=== PATIENT | female | born 1980 | race Caucasian/White ===

== ENCOUNTER 2024-06-30 13:34 | Observation (INO) | payer OTHER, SELFPAY ==
[2024-06-30 13:36] VITALS: BP 110/83; PULSE 95; RESP 16; TEMP 36.3; O2SAT 99; BMI 34.2
[2024-06-30 15:27] LABS: Absolute Lymphocyte Count 4.99 X10^3/uL (0.83-4.51); Absolute Neutrophil Count 5.6 X10^3/uL (2.0-7.7); Basophil# 0.05 X10^3/uL; Basophil% 0.4 % (0-1); Eosinophil# 0.14 X10^3/uL; Eosinophils% 1.2 % (0-5); Hematocrit 42.8 % (37-47); Hemoglobin 14.3 g/dL (12.0-15.0); Lymphocyte # 4.99 X10^3/ul (0.83-4.51); Lymphocyte % 43.5 % (19-41); Mean Corp Hgb Conc 33.4 g/dL (32-36); Mean Corpuscular Hgb 29.3 pg (27.0-32.0); Mean Corpuscular Volume 87.7 fL (81-99); Mean Platelet Vol. 9.2 fl (6.2-12.0); Monocyte# 0.61 X10^3/uL; Monocyte% 5.3 % (0-10); NRBC Flagged by Analyzer 0 % (0-5); Neutrophil # 5.64 X10^3/uL (2.7-7.7); Neutrophil % 49.3 % (47-70); POSITIVE MORPHOLOGY YES; Platelet Count 333 K/mm3 (150-450); RBC Distribution Width CV 14.3 % (11.6-14.6); Red Blood Count 4.88 M/mm3 (4.2-5.4); White Blood Count 11.5 K/mm3 (4.4-11.0)
[2024-06-30 15:29] LABS: Differential Indicated SCAN CRITERIA MET
[2024-06-30 15:54] LABS: Platelet Estimate ADEQUATE (ADEQ)
[2024-06-30 16:04] LABS: Bacteria 0 SEEN /hpf (None Seen); Mucous, Urine 0 SEEN /hpf (<or=2+)
[2024-06-30 16:13] LABS: Color, Urine Yellow (Yellow); Glucose, Dipstick Normal (Normal); Leukocyte Esterase-Dipstick Negative /ul (Negative); Nitrite-Dipstick Negative (Negative); Occult Blood-Urine Negative /ul (Negative); Protein-Dipstick 15 mg/dl (Negative); Urine Bilirubin Dipstick Negative (Negative); Urine Clarity Clear (Clear); Urine Urobilinogen Normal (Normal)
[2024-06-30 16:18] LABS: Ketone-Dipstick 150 mg/dl (Negative)
[2024-06-30 16:22] LABS: ALB/GLOB Ratio 1.5 RATIO (0.9-2.4); AST(SGOT) 15 U/L (<=31); Alanine Aminotransfer ALT/SGPT 14 U/L (<=34); Albumin, Serum 4.4 g/dL (3.5-5.0); Alkaline Phosphatase 83 U/L (35-104); Anion Gap 15 (5-15); BUN 8 mg/dL (4-19); BUN/Creat Ratio 8.5 RATIO (10-20); Calcium,Total 9.8 mg/dL (7.6-11.0); Carbon Dioxide 21.5 mmol/L (21.0-32.0); Chloride 103 mmol/L (98-108); Creatinine, Serum 0.92 mg/dL (0.70-1.20); EST Glomerular Filtration Rate 79 (>60); Estimated Creatinine Clearance 89.09 ml/min (50-250); Globulin 2.9 g/dL (2.2-4.2); Glucose 71 mg/dL (70-99); Lipase 36 U/L (13-75); Potassium 4.5 mmol/L (3.3-5.1); Protein, Total 7.3 g/dL (5.9-8.4); Sodium Level 139 mmol/L (133-145); Total Bilirubin 0.35 mg/dL (0.00-1.30)
[2024-06-30 16:32] LABS: Internal QC Validated? YES +Cl - CLEAR BKGD; Pregnancy, Serum, hCG Quali. NEGATIVE Negative
[2024-06-30 16:37] LABS: Squamous Epithelial Cells - UA 0-5 SEEN /hpf (5-10); White Blood Cells 0-5 SEEN /hpf (0-5)
[2024-06-30 16:39] LABS: Red Blood Cells-Urine 0-5 SEEN /hpf (0-5)
[2024-06-30 19:00] VITALS: BP 107/78; PULSE 95; RESP 19; O2SAT 98
--- NOTE | 2024-06-30 19:18 | CT_ITS ---
PROCEDURE: ABDOMEN/PELVIS W IV CONT ONLY 06/30/2024 REASON FOR EXAM: RUQ PAIN TECHNIQUE: Abdomen and pelvis CT with intravenous contrast. Coronal and Sagittal reconstruction series were provided. PATIENT PREPARATION: Per protocol ORAL CONTRAST TYPE: None. AMOUNT: mL One or more dose reduction techniques were used (e.g., Automated exposure control, adjustment of the mA and/or kV according to patient size, use of iterative reconstruction technique. FINDINGS: Lung bases: The lung bases are clear. Liver: Normal size. No mass. Gallbladder: Diffuse wall thickening. Spleen: Normal size. Pancreas: Normal size without evidence of mass surrounding inflammation or ductal dilation. Adrenals: Left adrenal nodule consistent with an adenoma Kidneys: Normal renal sizes. No hydronephrosis. Bladder: Unremarkable. Reproductive Organs: Prior hysterectomy. Adnexal regions are unremarkable. Bowel: No bowel obstruction. Appendix: Unremarkable. Lymph nodes: Unremarkable. Vasculature: The abdominal aorta and IVC are normal. Peritoneum / Retroperitoneum: Unremarkable. Bones: Unremarkable. CT/Abdomen/Pelvis W IV Cont ONLY IMPRESSION: Subtle gallbladder wall thickening may be secondary to acute or chronic cholecy stitis. Correlation with right upper quadrant ultrasound may be useful. Reading Location: [id number]
[2024-06-30] MEDS: Morphine 4 MG/ML Syringe IV ×2 (19:24→21:44)
[2024-06-30] MEDS: Ondansetron 4 MG/2 ML Vial IV (19:24)
--- NOTE | 2024-06-30 19:36 | EX.ED.DYSGE1 ---
HPI <JAME Gomez - Last Filed: 06/30/24 21:27> History of Present Illness Chief Complaint: Abd Pain Narrative Narrative: Patient is a 44-year-old female with history of obesity, hyperlipidemia, anxiety who presents to the [facility] for ongoing abdominal pain. Patient states for the last 2 weeks, she has been having worsening pain to her right upper quadrant that goes through to her back this has been getting progressively worse over the last 2 weeks. She did have a right upper quadrant ultrasound completed yesterday, this did show some gallbladder sludge however did not show any pericholecystic fluid, no signs for acute cholecystitis. Today the pain was much worse, and the patient called her PCP who told her to go to the emergency department. PFS <JAME Gomez - Last Filed: 06/30/24 21:27> [facility] Home Medications ?Medication ?Instructions ?Recorded ?Last Taken ?Type atorvastatin 20 mg tablet 20 mg PO QHS 06/30/24 06/30/24 History escitalopram oxalate 20 mg tablet 20 mg PO DAILY 06/30/24 06/30/24 History omeprazole 40 mg capsule,delayed 40 mg PO DAILY 06/30/24 06/30/24 History release tirzepatide 10 mg/0.5 mL 10 mg subcut QWEEK 06/30/24 Unknown History subcutaneous pen injector (Mounjaro) Allergy/AdvReac Type Severity Reaction Status Date / Time aspirin AdvReac Itching Verified 06/30/24 13:36 metaxalone (From Skelaxin) AdvReac Itching Verified 06/30/24 13:36 Social History Smoking Status: Current every day smoker tobacco type: cigarettes ROS <JAME Gomez - Last Filed: 06/30/24 21:27> ROS ED ROS Narrative Constitutional: Negative for fever, chills. Positive for weight loss, weakness Eyes: Negative for vision loss, vision change, double vision ENT: Negative for any sore throat, ear pain, congestion Cardiovascular: Negative for any chest pain, tightness, palpitations Respiratory: Negative for any cough, sputum production, hemoptysis, dyspnea, dyspnea on exertion, orthopnea Gastrointestinal: Negative for any constipation, blood in stool, blood in vomit. Positive for abdominal pain, nausea and vomiting, diarrhea : Negative for any urinary frequency, dysuria, retention, blood in urine Muscle skeletal: Negative for any neck pain, back pain Neurological: Negative for any headache, syncope, dizziness Skin: Negative for any rashes, itching, abrasions, lacerations Psychiatric: Negative for any depression, anxiety, stress, suicidal ideation, homicidal ideation Hematologic: Negative for any excessive bruising, easy bleeding EXAM <Kip NoemiJAME ferguson - Last Filed: 06/30/24 21:27> Physical Exam Narrative Exam Narrative: Vital signs reviewed. HEET: Head normocephalic atraumatic, TMs clear bilaterally. Posterior pharynx is clear, moist mucous membranes. Nares clear bilaterally. Neck: Supple with no lymphadenopathy or tenderness. No signs of meningismus. Cardiac: Regular rate and rhythm no murmurs gallops or rubs, equal peripheral pulses bilaterally. Respiratory: Lungs clear to auscultation bilaterally. No chest tenderness. Abdomen: Soft, tenderness to the right upper quadrant, right epigastric area. Positive Maddox sign. No peritoneal signs, active bowel sounds in all quadrants. No abdominal bruit or pulsatile masses. No hepatosplenomegaly Extremities: No peripheral edema, no signs of gross trauma or deformity. Active full range of motion of all extremities. Neuro: Cranial nerves II through XII intact, no focal neurological deficits. Skin: Clean dry and intact with no rash, purpura, petechiae, vesicles or pustules. Backs/flank: No CVA tenderness, no midline spinal tenderness, no deformity. Psych: Normal mood and affect. No SI, HI or acute psychosis. Const Vital Signs: 06/30/24 13:36 06/30/24 19:00 06/30/24 21:00 Temperature 97.3 F L Temperature Source Temporal Pulse Rate 95 95 68 Respiratory Rate 16 19 H 14 Blood Pressure 110/83 H 107/78 Blood Pressure Mean 92 87 Pulse Ox 99 98 Oxygen Delivery Method Room Air Room Air Positive well nourished and well developed General Appearance ED: well developed <Dr. Bay Allen DO - Last Filed: 06/30/24 22:32> Physical Exam Const Vital Signs: 06/30/24 13:36 06/30/24 19:00 06/30/24 21:00 Temperature 97.3 F L Temperature Source Temporal Pulse Rate 95 95 68 Respiratory Rate 16 19 H 14 Blood Pressure 110/83 H 107/78 Blood Pressure Mean 92 87 Pulse Ox 99 98 Oxygen Delivery Method Room Air Room Air [facility] <Kip WheatleyJAME - Last Filed: 06/30/24 21:27> [facility] Lab Data Labs: Laboratory Results - last 24 hr 06/30/24 06/30/24 15:20 15:53 WBC 11.5 H RBC 4.88 Hgb 14.3 Hct 42.8 MCV 87.7 MCH 29.3 MCHC 33.4 RDW Std Deviation 46.0 H RDW Coeff of Chadwick 14.3 Plt Count 333 MPV 9.2 Immature Gran % (Auto) 0.300 Neut % (Auto) 49.3 Lymph % (Auto) 43.5 H [place] % (Auto) 5.3 Eos % (Auto) 1.2 Baso % (Auto) 0.4 Absolute Neuts (auto) 5.6 Absolute Lymphs (auto) 4.99 H Nucleated RBC % 0 Platelet Estimate ADEQUATE Sodium 139 Potassium 4.5 Chloride 103 Carbon Dioxide 21.5 Anion Gap 15 BUN 8 Creatinine 0.92 Estim Creat Clear Calc 89.09 Est GFR (MDRD) Non-Af 79 BUN/Creatinine Ratio 8.5 L Glucose 71 Calcium 9.8 Total Bilirubin 0.35 AST 15 ALT 14 Alkaline Phosphatase 83 Total Protein 7.3 Albumin 4.4 Globulin 2.9 Albumin/Globulin Ratio 1.5 Lipase 36 Serum , Qual NEGATIVE Urine Color Yellow Urine Clarity Clear Urine pH 6.0 Ur Specific [place] 1.010 Urine Protein 15 H Urine Glucose (UA) Normal Urine Ketones 150 A* Urine Occult Blood Negative Urine Nitrite Negative Urine Bilirubin Negative Urine Urobilinogen Normal Ur Leukocyte Esterase Negative Urine RBC 0-5 SEEN Urine WBC 0-5 SEEN Ur Squamous Epith Cells 0-5 SEEN Urine Bacteria 0 SEEN Urine Mucus 0 SEEN Radiography Diagnostic Testing: Clinical Impression(s) from Imaging Studies Abdomen/Pelvis CT 06/30/24 19:18 IMPRESSION: Subtle gallbladder wall thickening may be secondary to acute or chronic cholecystitis. Correlation with right upper quadrant ultrasound may be useful. Reading Location: [id number] Treatment and Re-Evaluation :: Differential diagnosis includes however is not limited to: Acute cholecystitis, bowel obstruction, gastritis, biliary colic, colitis Patient appears generally well, vital signs are stable, patient is nontoxic-appearing. Presenting to the [facility] for ongoing pain of the right upper quadrant. Patient did receive a ultrasound that showed some biliary sludge. Patient did receive some basic laboratory values in the emergency department. This was done in the waiting room, patient CBC showed a slight leukocytosis with a white blood 11.5, chemistries show no acute process, no transaminitis. Patient is not lipase is 36. Patient's urinalysis was negative for any infection however did show ketones. Patient received a CT scan of the abdomen pelvis with IV contrast as well as IV fluids, Zofran and morphine. Will need to be reevaluated. All radiologic examinations were read, reviewed by the emergency department attending. From these reads, a plan of care will be put in place. Patient received a CT scan of the M pelvis with IV contrast. This does show a subtle gallbladder wall thickening may be secondary to acute or chronic cholecystitis. Secondary to the patient's pain to the right upper quadrant, I did speak to surgery who will be down to evaluate the patient. Patient be admitted to surgery service. <Dr. Bay Allen, DO - Last Filed: 06/30/24 22:32> [facility] Narrative Medical decision making narrative: I have personally performed a face to face assessment of the patient and have reviewed the HAM[facility] Note. I performed a substantive portion of the visit including all aspects of the following. My zuniga findings include: History: Patient presents with right upper abdominal pain that has been getting worse over the past few weeks. Patient states she had an outpatient ultrasound which showed sludge in her gallbladder. There is no evidence of acute cholecystitis. Patient states her pain is worse with eating. Patient states that he gets worse approximately 30 to 45 minutes after eating. Patient states her pain radiates into her right scapular area. Patient admits to some nausea and vomiting. Patient denies any hematemesis or coffee-ground emesis. Patient admits to some diarrhea. Patient denies any dysuria, frequency, or hematuria. Exam: Vital signs are stable. Patient is afebrile. Patient is in no acute distress. Oral mucosa is pink and moist. Neck is supple. Trachea is midline. There is no JVD. Heart with regular rate and rhythm. Lungs are clear and equal bilaterally. Abdomen is soft. Bowel sounds are normal. There is right upper quadrant tenderness. There is a positive Maddox sign. There is no rebound or guarding noted. Cranial nerves II through XII are intact. There are no focal motor or sensory deficits noted. Medical Decision Making: Differential diagnosis includes acute cholecystitis, cholelithiasis, bowel obstruction, perforation, pancreatitis, peptic ulcer disease, gastric ulcer, duodenal ulcer, and gastroenteritis. CBC will be obtained to assess for leukocytosis and anemia. Comprehensive metabolic profile will be obtained to assess for hepatic function, renal function, and electrolyte abnormality. Lipase will be obtained to assess for pancreatitis. Serum hCG will be obtained to assess for . Urinalysis will be obtained to assess for urinary tract infection and hematuria. CT scan of the abdomen and pelvis will be obtained to assess for cholecystitis, cholelithiasis, bowel obstruction, and perforation. Patient was given IV fluids, morphine, and Zofran. CBC was reviewed. There is a mild leukocytosis of 11.5. The remainder is within normal limits. Comprehensive metabolic profile was reviewed and was within normal limits. Lipase was reviewed and was normal at 35. Serum hCG was reviewed and was negative. Urinalysis was reviewed. There is no evidence of urinary tract infection or hematuria. CT scan of the abdomen and pelvis was obtained. There is subtle gallbladder wall thickening that could be secondary to acute cholecystitis. There is no free air or free fluid. This was interpreted by the radiologist and was also independently reviewed by myself. Patient was advised of her findings. Patient was given a dose of Zosyn. Case was discussed with Dr. Bosch from general surgery. He was in to evaluate the patient. He will admit the patient to his service. Patient understood and was agreeable with the plan. All questions were answered. Lab Data Labs: Laboratory Results - last 24 hr 06/30/24 06/30/24 15:20 15:53 WBC 11.5 H RBC 4.88 Hgb 14.3 Hct 42.8 MCV 87.7 MCH 29.3 MCHC 33.4 RDW Std Deviation 46.0 H RDW Coeff of Chadwick 14.3 Plt Count 333 MPV 9.2 Immature Gran % (Auto) 0.300 Neut % (Auto) 49.3 Lymph % (Auto) 43.5 H [place] % (Auto) 5.3 Eos % (Auto) 1.2 Baso % (Auto) 0.4 Absolute Neuts (auto) 5.6 Absolute Lymphs (auto) 4.99 H Nucleated RBC % 0 Platelet Estimate ADEQUATE Sodium 139 Potassium 4.5 Chloride 103 Carbon Dioxide 21.5 Anion Gap 15 BUN 8 Creatinine 0.92 Estim Creat Clear Calc 89.09 Est GFR (MDRD) Non-Af 79 BUN/Creatinine Ratio 8.5 L Glucose 71 Calcium 9.8 Total Bilirubin 0.35 AST 15 ALT 14 Alkaline Phosphatase 83 Total Protein 7.3 Albumin 4.4 Globulin 2.9 Albumin/Globulin Ratio 1.5 Lipase 36 Serum , Qual NEGATIVE Urine Color Yellow Urine Clarity Clear Urine pH 6.0 Ur Specific [place] 1.010 Urine Protein 15 H Urine Glucose (UA) Normal Urine Ketones 150 A* Urine Occult Blood Negative Urine Nitrite Negative Urine Bilirubin Negative Urine Urobilinogen Normal Ur Leukocyte Esterase Negative Urine RBC 0-5 SEEN Urine WBC 0-5 SEEN Ur Squamous Epith Cells 0-5 SEEN Urine Bacteria 0 SEEN Urine Mucus 0 SEEN Radiography Diagnostic Testing: Clinical Impression(s) from Imaging Studies Abdomen/Pelvis CT 06/30/24 19:18 IMPRESSION: Subtle gallbladder wall thickening may be secondary to acute or chronic cholecystitis. Correlation with right upper quadrant ultrasound may be useful. Reading Location: [facility] Discharge Plan Dx/Rx/DC Orders Clinical Impression: Acute cholecystitis Disposition Disposition: Acute Care Hospital [facility]
--- NOTE | 2024-06-30 20:57 | PCM.HP.STD ---
HPI - General HPI Narrative GRACIA FONTANEZ, is a 44 F who presents with abdominal pain and nausea and vomiting. Patient reports this has been going on for several months. She said that she had a hysterectomy in April and she started having constipation as well as right upper quadrant pain and black and tarry stools. She is on omeprazole. PFSH Home Medications ?Medication ?Instructions ?Recorded ?Last Taken ?Type clonazepam 1 mg tablet (Klonopin) 1 mg PO 01/13/13 01/13/13 History hydrocodone-acetaminophen 5-325mg 1 tab PO Q6H PRN PRN Pain 01/13/13 Unknown History 5mg-325mg topiramate 25 mg tablet 25 mg PO BID 01/13/13 01/13/13 History Allergy/AdvReac Type Severity Reaction Status Date / Time aspirin AdvReac Itching Verified 06/30/24 13:36 metaxalone (From Skelaxin) AdvReac Itching Verified 06/30/24 13:36 Social History Smoking Status: Current every day smoker tobacco type: cigarettes ROS Constitutional Constitutional: Reports anorexia; Denies chills, fatigue or fever(s) Eyes Eyes: Denies blurry vision ENT HEENT: Denies abnormal hearing Cardiovascular Cardiovascular: Denies chest pain Respiratory/Chest Respiratory/Chest: Denies cough or dyspnea Gastrointestinal Gastrointestinal: Reports abdominal pain, melena, nausea and vomiting Genitourinary Genitourinary: Denies change in urinary stream Musculoskeletal Musculoskeletal: Denies abnormal gait Psychiatric Psychiatric: Denies anxiety Endocrine Endocrinology: Denies flushing Vital Signs Vital Signs Vital Signs: 06/30/24 13:36 06/30/24 19:00 Temperature 97.3 F L Temperature Source Temporal Pulse Rate 95 95 Respiratory Rate 16 19 H Blood Pressure 110/83 H 107/78 Blood Pressure Mean 92 87 Pulse Ox 99 98 Oxygen Delivery Method Room Air Room Air Weight Weight: 206 lb Body Mass Index (BMI) 34.2 Physical Exam Const oriented x3 and no apparent distress Resp normal respiratory effort Cardio regular rate and regular rhythm GI soft to palpation Palpation: tender RUQ Results Lab / Micro Data 06/30/24 15:20 06/30/24 15:20 Labs: Laboratory Results - last 24 hr 06/30/24 15:20: WBC 11.5 H, RBC 4.88, Hgb 14.3, Hct 42.8, MCV 87.7, MCH 29.3, MCHC 33.4, RDW Std Deviation 46.0 H, RDW Coeff of Chadwick 14.3, Plt Count 333, MPV 9.2, Immature Gran % (Auto) 0.300, Neut % (Auto) 49.3, Lymph % (Auto) 43.5 H, [place] % (Auto) 5.3, Eos % (Auto) 1.2, Baso % (Auto) 0.4, Absolute Neuts (auto) 5.6, Absolute Lymphs (auto) 4.99 H, Nucleated RBC % 0, Platelet Estimate ADEQUATE, Sodium 139, Potassium 4.5, Chloride 103, Carbon Dioxide 21.5, Anion Gap 15, BUN 8, Creatinine 0.92, Estim Creat Clear Calc 89.09, Est GFR (MDRD) Non-Af 79, BUN/Creatinine Ratio 8.5 L, Glucose 71, Calcium 9.8, Total Bilirubin 0.35, AST 15, ALT 14, Alkaline Phosphatase 83, Total Protein 7.3, Albumin 4.4, Globulin 2.9, Albumin/Globulin Ratio 1.5, Lipase 36, Serum , Qual NEGATIVE 06/30/24 15:53: Urine Color Yellow, Urine Clarity Clear, Urine pH 6.0, Ur Specific [place] 1.010, Urine Protein 15 H, Urine Glucose (UA) Normal, Urine Ketones 150 A*, Urine Occult Blood Negative, Urine Nitrite Negative, Urine Bilirubin Negative, Urine Urobilinogen Normal, Ur Leukocyte Esterase Negative, Urine RBC 0-5 SEEN, Urine WBC 0-5 SEEN, Ur Squamous Epith Cells 0-5 SEEN, Urine Bacteria 0 SEEN, Urine Mucus 0 SEEN Imaging Radiology Impression Abdomen/Pelvis CT 06/30/24 19:18 IMPRESSION: Subtle gallbladder wall thickening may be secondary to acute or chronic cholecystitis. Correlation with right upper quadrant ultrasound may be useful. Reading Location: [id number] Assessment & Plan Assessment/Plan (1) Acute cholecystitis: PLAN: The patient had an outpatient ultrasound done yesterday which showed sludge and wall thickening of the gallbladder. She called her doctor today and told her she was not feeling well and they sent her to the emergency room. She has CT scan with that also confirms thickening of the gallbladder wall with surrounding stranding suggestive of early acute cholecystitis. I discussed this with the patient in detail and recommended laparoscopic cholecystectomy. I discussed this with her. I discussed the procedure in detail with the patient. I discussed the risks, benefits, and alternatives of the procedure. I discussed the risks including but not limited to bleeding, infection, injury to surrounding organs such as the liver, bile duct, bowels. I did discuss the possibility of having to convert to an open procedure as well as the possibility that if any injuries occurred this may necessitate further surgery at a tertiary care center. I will admit the patient on antibiotics tonight and plan for surgery tomorrow.
[2024-06-30 21:00] VITALS: PULSE 68; RESP 14
[2024-06-30 21:50] VITALS: BP 107/78; PULSE 68; RESP 14; TEMP 36.3; O2SAT 98
[2024-06-30] MEDS: 0.9% Normal Saline (1000mL) 1,000 ML 100 ML IV ×2 (21:56→23:52)
[2024-06-30] MEDS: Piperacil/Tazobactam 3.375 GM in 0.9% Normal Saline (50mL MB+) 50 ML IV (23:23)
[2024-06-30 23:25] VITALS: BMI 34.7
[2024-06-30 23:45] VITALS: BP 127/83; PULSE 80; RESP 18; TEMP 36.7; O2SAT 95
[2024-06-30] MEDS: 0.9% Saline Lock 10 ML Syringe IV (23:51)
[2024-06-30] MEDS: Ketorolac 15 MG/ML Vial IV (23:51)
[2024-07-01] VITALS (17 sets, daily range): BP systolic 105–140; BP diastolic 69–97; PULSE 75–97; RESP 16–20; TEMP 36.4–36.9; O2SAT 92–99
--- NOTE | 2024-07-01 03:35 | EKG12_ITS ---
Test Reason : PRE-OP Blood Pressure : */* mmHG Vent. Rate : 74 BPM Atrial Rate : 74 BPM P-R Int : 140 ms QRS Dur : 82 ms QT Int : 440 ms P-R-T Axes : 35 63 26 degrees QTcB Int : 488 ms Normal sinus rhythm Low voltage QRS Prolonged QT Abnormal ECG No previous ECGs available Confirmed by Dominick Cordero ([id number]), publishing editor CLARISSE ALBETR ([id number]) on 07/02/2024 9:39:58 AM Referred By: VIMAL Confirmed By: Dominick Cordero
[2024-07-01] MEDS: Morphine 2 MG/ML Syringe IV ×4 (05:23→20:52)
[2024-07-01] MEDS: Ondansetron 4 MG/2 ML Vial IV ×2 (05:23→18:50)
[2024-07-01] MEDS: Piperacil/Tazobactam 3.375 GM in 0.9% Normal Saline (50mL MB+) 50 ML IV ×3 (05:32→20:52)
--- NOTE | 2024-07-01 07:06 | RAD_ITS ---
EXAM: Intraoperative cholangiogram. CLINICAL HISTORY: Laparoscopic cholecystectomy. COMPARISON: None TECHNIQUE: Intraoperative cholangiogram was performed by the surgeon. Imaging was submitted. 2 minutes and 26 seconds of fluoroscopy. 8.32 mGy. FINDINGS: Attempted cholangiogram. Nondiagnostic. RAD/Cholangiogram/ O R,Initial IMPRESSION: Nondiagnostic cholangiogram. Reading Location: [place] [id number]
[2024-07-01 07:18] LABS: Absolute Lymphocyte Count 4.48 X10^3/uL (0.83-4.51); Absolute Neutrophil Count 2.9 X10^3/uL (2.0-7.7); Basophil# 0.04 X10^3/uL; Basophil% 0.5 % (0-1); Eosinophil# 0.23 X10^3/uL; Eosinophils% 2.8 % (0-5); Hematocrit 37.1 % (37-47); Lymphocyte # 4.48 X10^3/ul (0.83-4.51); Mean Corp Hgb Conc 32.3 g/dL (32-36); Mean Corpuscular Hgb 28.9 pg (27.0-32.0); Mean Corpuscular Volume 89.4 fL (81-99); Mean Platelet Vol. 9.7 fl (6.2-12.0); Monocyte# 0.64 X10^3/uL; Monocyte% 7.7 % (0-10); NRBC Flagged by Analyzer 0 % (0-5); Neutrophil # 2.89 X10^3/uL (2.7-7.7); Neutrophil % 34.9 % (47-70); Platelet Count 273 K/mm3 (150-450); RBC Distribution Width CV 14.4 % (11.6-14.6); RBC Distribution Width SD 46.8 fl (35.1-43.9); Red Blood Count 4.15 M/mm3 (4.2-5.4); White Blood Count 8.3 K/mm3 (4.4-11.0)
--- NOTE | 2024-07-01 07:23 | PCM.PN.SRG ---
Subjective Subjective Patient still having right upper quadrant pain Objective Data Objective Data Vital Signs: Vital Signs Temp Pulse Resp BP Pulse Ox O2 Del Method 97.5 F L 75 18 115/82 H 97 Room Air 07/01/24 05:30 07/01/24 05:30 07/01/24 05:30 07/01/24 05:30 07/01/24 05:30 07/01/24 05:30 Oxygen Delivery Method Room Air Weight: 208 lb 6.4 oz Body Mass Index (BMI) 34.7 Intake & Output: Intake and Output for Last 24 Hours 06/29/24 06/30/24 07/01/24 23:59 23:59 23:59 Intake Total 193.33 / 193.33 250 / 250 Balance 193.33 / 193.33 250 / 250 Lab / Micro Data 07/01/24 06:35 06/30/24 15:20 Labs: Laboratory Results - last 24 hr 06/30/24 15:20: WBC 11.5 H, RBC 4.88, Hgb 14.3, Hct 42.8, MCV 87.7, MCH 29.3, MCHC 33.4, RDW Std Deviation 46.0 H, RDW Coeff of Chadwick 14.3, Plt Count 333, MPV 9.2, Immature Gran % (Auto) 0.300, Neut % (Auto) 49.3, Lymph % (Auto) 43.5 H, [place] % (Auto) 5.3, Eos % (Auto) 1.2, Baso % (Auto) 0.4, Absolute Neuts (auto) 5.6, Absolute Lymphs (auto) 4.99 H, Nucleated RBC % 0, Platelet Estimate ADEQUATE, Sodium 139, Potassium 4.5, Chloride 103, Carbon Dioxide 21.5, Anion Gap 15, BUN 8, Creatinine 0.92, Estim Creat Clear Calc 89.09, Est GFR (MDRD) Non-Af 79, BUN/Creatinine Ratio 8.5 L, Glucose 71, Calcium 9.8, Total Bilirubin 0.35, AST 15, ALT 14, Alkaline Phosphatase 83, Total Protein 7.3, Albumin 4.4, Globulin 2.9, Albumin/Globulin Ratio 1.5, Lipase 36, Serum , Qual NEGATIVE 06/30/24 15:53: Urine Color Yellow, Urine Clarity Clear, Urine pH 6.0, Ur Specific [place] 1.010, Urine Protein 15 H, Urine Glucose (UA) Normal, Urine Ketones 150 A*, Urine Occult Blood Negative, Urine Nitrite Negative, Urine Bilirubin Negative, Urine Urobilinogen Normal, Ur Leukocyte Esterase Negative, Urine RBC 0-5 SEEN, Urine WBC 0-5 SEEN, Ur Squamous Epith Cells 0-5 SEEN, Urine Bacteria 0 SEEN, Urine Mucus 0 SEEN 07/01/24 06:35: WBC 8.3, RBC 4.15 L, Hgb 12.0, Hct 37.1, MCV 89.4, MCH 28.9, MCHC 32.3, RDW Std Deviation 46.8 H, RDW Coeff of [place] 14.4, Plt Count 273, MPV 9.7, Immature Gran % (Auto) 0.100, Neut % (Auto) 34.9 L, Lymph % (Auto) 54.0 H, [place] % (Auto) 7.7, Eos % (Auto) 2.8, Baso % (Auto) 0.5, Absolute Neuts (auto) 2.9, Absolute Lymphs (auto) 4.48, Nucleated RBC % 0 Radiography Diagnostic Testing: Radiology Impression Abdomen/Pelvis CT 06/30/24 19:18 IMPRESSION: Subtle gallbladder wall thickening may be secondary to acute or chronic cholecystitis. Correlation with right upper quadrant ultrasound may be useful. Reading Location: [facility] Physical Exam Const oriented x3 and no apparent distress Resp normal respiratory effort GI soft to palpation Palpation: tender RUQ Assessment & Plan Assessment/Plan (1) Acute cholecystitis: PLAN: Patient has sludge and acute cholecystitis. Plan for laparoscopic cholecystectomy today. All the patient's questions were answered and the patient is ready for surgery. Unruly Bosch MD Pager: [facility] [address] [place] [address], [address] [place] [address] Office:
[2024-07-01 07:51] LABS: ALB/GLOB Ratio 1.5 RATIO (0.9-2.4); AST(SGOT) 14 U/L (<=31); Alanine Aminotransfer ALT/SGPT 11 U/L (<=34); Albumin, Serum 3.7 g/dL (3.5-5.0); Alkaline Phosphatase 70 U/L (35-104); Anion Gap 12 (5-15); BUN 6 mg/dL (4-19); BUN/Creat Ratio 7.2 RATIO (10-20); Calcium,Total 8.7 mg/dL (7.6-11.0); Carbon Dioxide 21.9 mmol/L (21.0-32.0); Chloride 105 mmol/L (98-108); Creatinine, Serum 0.82 mg/dL (0.70-1.20); EST Glomerular Filtration Rate 91 (>60); Estimated Creatinine Clearance 100.56 ml/min (50-250); Globulin 2.4 g/dL (2.2-4.2); Glucose 66 mg/dL (70-99); Potassium 3.7 mmol/L (3.3-5.1); Protein, Total 6.2 g/dL (5.9-8.4); Sodium Level 138 mmol/L (133-145)
[2024-07-01] MEDS: Ketorolac 15 MG/ML Vial IV ×2 (10:12→20:51)
--- NOTE | 2024-07-01 11:06 | PRE.ANES_ITS ---
ASA Classification* ASA Classification ASA Classification: 2 Assessment & Plan Anesthesia* Anesthesia Assessment Anesthesia Assessment: Discussed sedation and/or anesthesia options, risks, benefits, and alternatives with patient/parents/legal guardian/POA. Questions invited. The patient/parents/legal guardian/POA seems to understand and agrees to proceed with anesthesia plan. Reviewed the physical assessment, medical history, allergy history and patient home medications list prior to surgery/procedure/anesthetic and documented any changes. Performed airway and anesthesia risk assessments. Anesthesia Type Anesthesia Type: General Anesthesia Focused Assessment* Temperature: 97.5 F Pulse Rate: 75 Blood Pressure: 115/82 Respiratory Rate: 18 Pulse Ox: 97 Airway Assessment Mouth opens: >3 cm Mallampati Score: II Focused Labs Anesthesia Preop lab: CBC WBC 8.3 K/mm3 (4.4-11.0) 07/01/24 06:35 07/01/24 RBC 4.15 M/mm3 (4.2-5.4) L 07/01/24 06:35 07/01/24 Hgb 12.0 g/dL (12.0-15.0) 07/01/24 06:35 07/01/24 Hct 37.1 % (37-47) 07/01/24 06:35 07/01/24 Plt Count 273 K/mm3 (150-450) 07/01/24 06:35 07/01/24 CHEMISTRY Potassium 3.7 mmol/L (3.3-5.1) 07/01/24 06:35 07/01/24 Sodium 138 mmol/L (133-145) 07/01/24 06:35 07/01/24 BUN 6 mg/dL (4-19) 07/01/24 06:35 07/01/24 Creatinine 0.82 mg/dL (0.70-1.20) 07/01/24 06:35 07/01/24 Glucose 66 mg/dL (70-99) L 07/01/24 06:35 07/01/24 TSH 2.19 uIU/mL (0.358-3.74) 02/08/12 10:57 2 COAG Pre-Assessment Diagnosis/Proposed Procedure Planned Operative Procedure(s): Laproscopic celi Anesthesia History 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 When Was Last Pacemaker Check QUESTION #4 FULL TEXT: You/Your Family Experience fever (hyperthermia) with Anesthesia Last Oral Intake Last Oral intake: Last Oral Intake NPO since Meds taken in AM with sips of water? Meds patient instructed to take am of surgery PONV PONV - water maintenance supervisor: PONV - water maintenance supervisor Female HX of Motion Sickness HX of N/V After Surgery Non-Smoker Duration of Surgery greater than 60 minutes Number of Risk Factors PONV Score Height & Weight Height & Weight: Anesthesia: Height & Weight Height 5 ft 5 in 06/30/24 23:25 Weight: 94.529 kg 06/30/24 23:25 Body Mass Index (BMI) 34.7 06/30/24 23:25 Respiratory Assessment Respiratory Assessment - water maintenance supervisor: Respiratory Tract Infection Hx - water maintenance supervisor Hx Respiratory Tract Infection No 07/01/24 05:27 STOP Sleep Apnea STOP Sleep Apnea - water maintenance supervisor: STOP Sleep Apnea - water maintenance supervisor Hx Hypertension No 06/30/24 23:25 Hx Sleep Apnea No 06/30/24 23:25 CPAP BIPAP Do you snore loudly (louder Yes 06/30/24 23:25 than talking or can be heard Do you often feel tired/ Yes 06/30/24 23:25 fatigued/ sleepy during daytime? Has anyone observed you stop No 06/30/24 23:25 breathing during sleep? STOP Results Positive 06/30/24 23:25 QUESTION #5 FULL TEXT : Do you snore loudly (louder than talking or can be heard through closed doors)? 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 Specify any problems Hx of Preganancy in last 3 N/A 06/30/24 23:25 Months Nurse Filling Out Transfusion LFORREST 06/30/24 23:25 & Questions: Date: 06/30/24 06/30/24 23:25 Time: 23:29 06/30/24 23:25 Patient unable to answer at this time (ie. confused, unrespo /Reproduction History /Reproductive History - water maintenance supervisor: /Reproductive Hx- water maintenance supervisor Hx Now No 07/01/24 05:27 Gestational Age (in weeks): EDC: Hx Hx Para Hx Section SAB No 07/01/24 05:27 Active Medications Active Medications: Current Medications Generic Name Dose Route Start Last Admin Trade Name Freq PRN Reason Stop Dose Admin Sodium Chloride 1,000 mls @ 100 mls/hr 06/30/24 21:05 07/01/24 09:52 IV Infused .Q10H BENI Infusion Piperacillin Sod/Tazobactam 50 mls @ 12.5 mls/hr 06/30/24 22:00 07/01/24 09:32 Sod 3.375 gm/ Sodium Chloride IV Infused Q8 BENI Infusion Sodium Chloride 100 mls @ 15 mls/hr 06/30/24 23:42 IV .Q6H40M PRN Saline Flush Sodium Chloride 100 mls @ 15 mls/hr 06/30/24 23:42 IV .Q6H40M PRN Additional IVPB Infusion Ketorolac Tromethamine 15 mg 06/30/24 21:04 07/01/24 10:12 Ketorolac 15 Mg/Ml Vial IV 07/02/24 21:07 15 mg Q8H PRN PRN Administration Pain Score 4-10 Morphine Sulfate 2 - 4 mg 06/30/24 21:04 07/01/24 05:23 Morphine 2 Mg/Ml Syringe IV 2 mg Q2H PRN PRN Administration Pain Score 4-10 Morphine Sulfate 2 - 4 mg 06/30/24 22:32 Morphine 4 Mg/Ml Syringe IV Q2H PRN PRN Pain Score 4-10 Ondansetron HCl 4 mg 06/30/24 21:04 07/01/24 05:23 Ondansetron 4 Mg/2 Ml Vial IV 4 mg Q6H PRN PRN Administration NAUSEA/VOMITING Sodium Chloride 10 - 40 ml 06/30/24 21:04 06/30/24 23:51 0.9% Saline Lock 10 Ml Syringe IV 20 ml UD PRN Administration SALINE FLUSH Sodium Chloride 10 - 40 ml 06/30/24 21:04 0.9% Saline Lock 10 Ml Syringe IV UD PRN SALINE FLUSH Sodium Chloride 10 - 40 ml 06/30/24 23:42 0.9% Saline Lock 10 Ml Syringe IV UD PRN SALINE FLUSH PFSH Medical History Bladder laceration as postoperative complication Sleep walking Patella fracture Spinal cord injury Home Medications ?Medication ?Instructions ?Recorded ?Last Taken ?Type atorvastatin 20 mg tablet 20 mg PO QHS 06/30/24 History escitalopram oxalate 20 mg tablet 20 mg PO DAILY 06/3006/30/24 History omeprazole 40 mg capsule,delayed 40 mg PO DAILY 06/30/24 History release tirzepatide 10 mg/0.5 mL 10 mg subcut QWEEK 06/30/24 06/27/24 History subcutaneous pen injector (Mounjaro) Allergy/AdvReac Type Severity Reaction Status Date / Time aspirin AdvReac Itching Verified 06/30/24 13:36 metaxalone (From Skelaxin) AdvReac Itching Verified 06/30/24 13:36 Surgical History H/O tubal ligation H/O: hysterectomy Social History Smoking Status: Current every day smoker tobacco type: cigarettes Review of Systems (Anesthesia) ROS Narrative System reviewed and no additional complaints, except as documented.
--- NOTE | 2024-07-01 11:45 | GALL_PTH ---
PATIENT: GRACIA FONTANEZ LOC: [facility]3 U#:[id number] AGE/SX: 44/F ROOM: FL311 RE06/30/[address]: Dr. Unruly Bosch MD : 1980 BED: 1 DIS: 07/02/2024 SPEC #: [id number] RECD: 07/01/24 14:25 STATUS: GIACOMO RIBEIROAnne Marie #: [id number] KAVITHA: 07/01/24 11:[address]: Unruly Bosch DEPT: SURGICAL PATHOLOGY RECD BY: Price Lou Tissues: A - Gallbladder, NOS Procedures: Surgery Specimen Level III HEADER OPERATION: Laparoscopic cholecystectomy PRE-OP DIAGNOSIS: Acute cholecystitis TISSUE SUBMITTED: A- Gallbladder MICROSCOPIC DIAGNOSIS A. Gallbladder, acute cholecystitis, cholecystectomy: * Cholesterolosis. * Benign pericystic lymph node x1. MICROSCOPIC DESCRIPTION Slides are reviewed. GROSS DESCRIPTION A. Received in formalin in a container labeled with the patient's name, date of , and gallbladder is an intact, 8.5 x 4.3 x 4.0 cm cholecystectomy specimen. A clamped possible cystic duct margin is identified measuring 0.3 cm in length by 0.2 cm in diameter (inked black). The serosa is within normal limits. The specimen is opened to reveal an abundance of thick green bile with no stones in the specimen or in the container. The mucosa is bile-stained green with diffuse trevino stippling. There is an average wall thickness of 0.2 cm. Summer Child Caregiver sections:A1. Possible cystic duct margin, en face with full-thickness sections [facility] 07-01-2024 CPT:31006
--- NOTE | 2024-07-01 12:00 | NURSING ---
martine sent down to OR per their request
[2024-07-01] MEDS: Bupiv/Epi 0.25% 30 ML Vial (12:20)
--- NOTE | 2024-07-01 12:29 | PCM.OPRPT ---
Operative Report (Standard) Operative Information Date of Procedure: 07/01/24 Pre-Operative Diagnosis: Acute cholecystitis Post-Operative Diagnosis: Acute cholecystitis Surgery/Procedure Performed: Laparoscopic cholecystectomy with attempted cholangiograms clubhouse attendant: Yes Electronics Specialist: Alesia Abraham Tasks completed by executive assistant to president: Opening, Closing and Retracting Type of Anesthesia: General/Regional RN Documented Start/Stop Times: Operation Date: 07/01/24 11:45 Case Time Into Pre-Op 07/01/24 11:01 Out of Pre-Op 07/01/24 11:28 Anesthesia Start 07/01/24 11:34 Into Room 07/01/24 11:34 Procedure Start 07/01/24 11:52 Procedure Start Time: 11:52 Procedure Stop Time: 12:40 Select all DRAINS/GRAFTS/IMPLANTS that apply: None Estimated Blood Loss: 20 Specimen collected: Yes Description of specimen(s) removed: Gallbladder Description of surgery: After obtaining informed consent patient was brought back to the operating room. General anesthesia was induced. The abdomen was prepped and draped in usual sterile fashion. A small midline incision was made superior to the umbilicus and deepened to the level of fascia. The fascia was elevated and incised. Next the peritoneum was elevated and incised in the same fashion. Finger sweep was performed and the Singh trocar was placed into the abdomen. The balloon was inflated. The abdomen was inflated to 15 mmHg. Next a camera was introduced into the abdomen and the abdomen was inspected. Next under direct visualization three 5-mm ports were placed one subxiphoid and 2 subcostal. Next the gallbladder was elevated and retracted toward the right shoulder. The peritoneum was stripped from the gallbladder. The infundibulum was located and retracted laterally. Next the triangle of Calot was dissected and the cystic duct and cystic artery were identified. Cholangiograms were attempted. The Diallo clamp was used to clamp across the infundibulum and the catheter needle was inserted into the gallbladder. Under fluoroscopy contrast was instilled into the gallbladder but the cystic duct was occluded and did not aligning contrast into the common duct. Cholangiograms were aborted. There was clear anatomy. The clamp was removed as well as the needle and the infundibulum was grasped once more. Three hemolock clips were placed across the cystic duct. The cystic duct was then divided leaving 2 clips on the stump. The cystic artery was clipped and divided in the same fashion. The hook cautery was then used to take the gallbladder off of the gallbladder bed. Hemostasis was obtained. Gallbladder fossa was irrigated and no active bleeding or bile leakage was noted. Next the camera was introduced in the subxiphoid port. An Endopouch bag was placed through the umbilical port and the gallbladder was placed into it. The gallbladder was then removed through the umbilical incision. The camera was then reinserted through the umbilical port. The gallbladder fossa was inspected once more and noted to be hemostatic with no leaking bile. The abdomen was suctioned dry. The 5 mm ports were removed under direct visualization. The umbilical port was then removed and the air was removed from the abdomen. Next using an 0 Vicryl suture the umbilical fascia was closed in a [id number] fashion. The umbilical port site was irrigated local anesthetic was administered to all the incisions. All the incisions were closed with interrupted subcuticular 4-0 Monocryl sutures followed by Steri-Strips and dressings. The patient was awoken and taken to PACU in stable condition. Surgical Findings: Inflamed gallbladder Complications Complications: No Admit VTE Documentation VTE Mechan Device Prophylaxis: SCD's
--- NOTE | 2024-07-01 12:32 | DCINST_ITS ---
Discharge Instructions Procedure Gallbladder Diet Discharge Diet: Light diet - advance as tolerated Activity Discharge Activity: May Not Drive (for 2-3 days or while taking narcotic pain medications.) and - (Do not drive, work heavy equipment or sign legal documents for 24 hours.) May shower in (days): 1 Lifting Restrictions: 20 lbs for 2 weeks Additional Activity Instructions:: Pain medication may cause nausea. You should typically eat light foods as you take your pain medications. Pain medication may also cause constipation. If this is a problem for you, please discuss with your doctor. Dressing / Incision Call your doctor if your incision/area has: Continuous Slow Oozing, Sudden Increased Bleeding, Increased Pain/ Swelling, Increased Redness and Foul Smelling Discharge Call your doctor if you observe: Fever of 101 or Higher Suture Line Care: Avoid Pulling/Pushing and Avoid Pinching/Bending Remove Dressing in: 2 days Additional Dressing/Incision Instructions:: Leave operative bandaids on for 2 days. When you remove dressing, leave Steri-Strips on until your follow-up appointment, or until the Steri-Strips fall off on their own. Follow Up Care Please Follow Up With: Unruly Bosch MD When: Please call to schedule 2 week follow up appointment. [phone] Test Results: Test results from this visit will be discussed in further detail at your follow- up appointment, if applicable. Discharge Plan Admission Admit Date/Time: 06/30/24 21:04 Attending Provider: Unruly Bosch Primary Care Provider: PAIGE WEEKS MD Discharge Orders/Prescriptions Prescriptions: New oxycodone 5 mg tablet 5 - 10 mg PO Q6H PRN (Reason: pain) 5 Days Qty: 20 0RF Continued atorvastatin 20 mg tablet 20 mg PO QHS omeprazole 40 mg capsule,delayed release(DR/EC) 40 mg PO DAILY escitalopram oxalate 20 mg tablet 20 mg PO DAILY Mounjaro 10 mg/0.5 mL pen injector 10 mg subcut QWEEK Rx Instructions: saturdays Referrals / Follow Up: PAIGE WEEKS MD [Other] PAIGE WEEKS MD [Other] Disposition Disposition (needs filled in before D/C Order can be placed): Home, Self Care
--- NOTE | 2024-07-01 12:55 | PCM.POST.ANE ---
Anesthesia: Postop Eval I Current Vital Signs Temperature: 98.2 F Pulse Rate: 94 Blood Pressure: 127/94 Respiratory Rate: 16 Pulse Ox: 99 Oxygen Delivery Method: Room Air Assessment Airway patent: Yes Spontaneous unlabored respirations: Yes Mental status: Awake nausea: Yes Vomiting: Yes Anesthesia Complication: No Fluid Hydration Crystalloid volume administer (ml): 900 Total IV fluid infused: 900 Progress Note Anesthesia document: Postop Eval 1 completed: Yes
--- NOTE | 2024-07-01 13:07 | POSTOPAN2_ITS ---
Anesthesia Postop Eval I Sum Postop Eval Completion status Anesthesia document: Postop Eval 1 completed: Yes Anesthesia Postop Eval I Summary Anesthesia Postop Eval I Summary: Anesthesia Postop Eval I: Assessment Summary Airway patent Yes 07/01/24 12:56 CLINICAL BIOSTATISTICS DIRECTOR.JDEF Spontaneous unlabored Yes 07/01/24 12:56 CLINICAL BIOSTATISTICS DIRECTOR.JDEF respirations Mental status Awake 07/01/24 12:56 CLINICAL BIOSTATISTICS DIRECTOR.JDEF nausea Yes 07/01/24 12:56 CLINICAL BIOSTATISTICS DIRECTOR.JDEF Vomiting Yes 07/01/24 12:56 CLINICAL BIOSTATISTICS DIRECTOR.JDEF Anesthesia Postop Eval I: Fluid Summary Crystalloid volume administer 900 07/01/24 12:56 CLINICAL BIOSTATISTICS DIRECTOR.JDEF (ml) Colloids volume administered ( ml) Blood Product volume administered (ml) Total IV fluid infused 900 07/01/24 12:56 CLINICAL BIOSTATISTICS DIRECTOR.JDEF Anesthesia Postop Eval I: Summary Notes Anesthesia Complication No 07/01/24 12:56 CLINICAL BIOSTATISTICS DIRECTOR.JDEF Anesthesia Complication Comment: Post-operative progress note Anesthesia: Postop Eval II Evaluation Mental status: Awake Pain Level: 0 nausea: No Vomiting: No
--- NOTE | 2024-07-01 13:07 | PCM.POSTANE2 ---
Anesthesia Postop Eval I Sum Postop Eval Completion status Anesthesia document: Postop Eval 1 completed: Yes Anesthesia Postop Eval I Summary Anesthesia Postop Eval I Summary: Anesthesia Postop Eval I: Assessment Summary Airway patent Yes 07/01/24 12:56 PROFESSOR OF GERMAN.JDEF Spontaneous unlabored Yes 07/01/24 12:56 PROFESSOR OF GERMAN.JDEF respirations Mental status Awake 07/01/24 12:56 PROFESSOR OF GERMAN.JDEF nausea Yes 07/01/24 12:56 PROFESSOR OF GERMAN.JDEF Vomiting Yes 07/01/24 12:56 PROFESSOR OF GERMAN.JDEF Anesthesia Postop Eval I: Fluid Summary Crystalloid volume administer 900 07/01/24 12:56 PROFESSOR OF GERMAN.JDEF (ml) Colloids volume administered ( ml) Blood Product volume administered (ml) Total IV fluid infused 900 07/01/24 12:56 PROFESSOR OF GERMAN.JDEF Anesthesia Postop Eval I: Summary Notes Anesthesia Complication No 07/01/24 12:56 PROFESSOR OF GERMAN.JDEF Anesthesia Complication Comment: Post-operative progress note Anesthesia: Postop Eval II Evaluation Mental status: Awake Pain Level: 0 nausea: No Vomiting: No
[2024-07-01] MEDS: 0.9% Normal Saline (1000mL) 1,000 ML 100 ML IV (15:37)
[2024-07-01] MEDS: 0.9% Saline Lock 10 ML Syringe IV ×2 (20:53→22:05)
[2024-07-01] MEDS: proCHLORPERazine 10 MG/2 ML Vial IV (22:05)
[2024-07-02] MEDS: oxyCODONE 5 MG Tablet PO ×2 (03:53→11:39)
[2024-07-02] MEDS: Acetaminophen 325 MG Tablet 650 MG PO ×2 (03:54→11:39)
[2024-07-02] MEDS: Ondansetron 4 MG/2 ML Vial IV ×2 (03:56→11:40)
[2024-07-02 04:08] VITALS: BP 128/86; PULSE 86; RESP 16; TEMP 36.6; O2SAT 99
[2024-07-02] MEDS: Piperacil/Tazobactam 3.375 GM in 0.9% Normal Saline (50mL MB+) 50 ML IV (04:59)
[2024-07-02 08:34] VITALS: BP 119/80; PULSE 80; RESP 18; TEMP 36.2; O2SAT 98
--- NOTE | 2024-07-02 09:11 | PN.SURG_ITS ---
Subjective Subjective Patient evaluated resting comfortably in bed. She notes feeling nauseated this morning and tenderness at the incision sites. She denies vomiting, fever. She is tolerating her diet. She notes belching. Negtive flatus or BM. Objective Data Objective Data Vital Signs: Vital Signs Temp Pulse Resp BP Pulse Ox O2 Del Method 97.1 F L 80 18 119/80 98 Room Air 07/02/24 08:34 07/02/24 08:34 07/02/24 08:34 07/02/24 08:34 07/02/24 08:34 07/02/24 08:34 Oxygen Delivery Method Room Air Weight: 208 lb 6.412 oz Body Mass Index (BMI) 34.7 Intake & Output: Intake and Output for Last 24 Hours 06/30/24 07/01/24 07/02/24 23:59 23:59 23:59 Intake Total 193.33 / 193.33 1350 / 1350 1100 / 1100 Balance 193.33 / 193.33 1350 / 1350 1100 / 1100 Lab / Micro Data 07/01/24 06:35 07/01/24 06:35 Radiography Diagnostic Testing: Radiology Impression Cholangiogram 07/01/24 07:06 IMPRESSION: Nondiagnostic cholangiogram. Reading Location: [place] [id number] Physical Exam GI GI Narrative: Abdomen- soft, slight tenderness over incision sites and RUQ. Incisions c/d/i. No erythema or infection noted. Assessment & Plan Assessment/Plan (1) Acute cholecystitis: PLAN: I am following this patient in conjunction with Dr. Bosch. He will independently evaluate this patient. Order CMP and Colace Continue with current diet without carbonation to help with the belching Encourage ambulation and I.S. use Hopeful discharge after lunch today Charges/Coding Visit Charges Inpatient E&M: 97549 Subs Hosp L1 (no charge; post-op)
[2024-07-02] MEDS: Docusate Sodium 100 MG Capsule PO (09:34)
[2024-07-02 10:26] LABS: ALB/GLOB Ratio 1.4 RATIO (0.9-2.4); AST(SGOT) 74 U/L (<=31); Alanine Aminotransfer ALT/SGPT 60 U/L (<=34); Albumin, Serum 4.2 g/dL (3.5-5.0); Alkaline Phosphatase 77 U/L (35-104); Anion Gap 15 (5-15); BUN 3 mg/dL (4-19); BUN/Creat Ratio 3.5 RATIO (10-20); Calcium,Total 9.3 mg/dL (7.6-11.0); Carbon Dioxide 17.3 mmol/L (21.0-32.0); Chloride 106 mmol/L (98-108); Creatinine, Serum 0.78 mg/dL (0.70-1.20); EST Glomerular Filtration Rate 97 (>60); Estimated Creatinine Clearance 105.72 ml/min (50-250); Globulin 2.9 g/dL (2.2-4.2); Glucose 68 mg/dL (70-99); Potassium 4.7 mmol/L (3.3-5.1); Protein, Total 7.1 g/dL (5.9-8.4); Sodium Level 138 mmol/L (133-145); Total Bilirubin 0.29 mg/dL (0.00-1.30)
[2024-07-02] MEDS: Ketorolac 15 MG/ML Vial IV (11:39)
[2024-07-02] MEDS: 0.9% Saline Lock 10 ML Syringe IV (11:48)
[2024-07-02 12:34] VITALS: BP 126/88; PULSE 76; RESP 18; TEMP 36.6; O2SAT 99
--- NOTE | 2024-07-02 13:55 | PCM.DC.SUM ---
Providers Date of Admission: 06/30/24 Primary Care Physician: PAIGE WEEKS Reason For Visit: ACUTE CHOLECYSTITIS Diagnosis Discharge Diagnosis (1) Acute cholecystitis: Status: Acute Code(s): K81.0 - Acute cholecystitis Plan: I am following this patient in conjunction with Dr. Bosch. He will independently evaluate this patient. Order CMP and Colace Continue with current diet without carbonation to help with the belching Encourage ambulation and I.S. use Hopeful discharge after lunch today Medications at Discharge Home Medications atorvastatin 20 mg tablet 20 mg PO QHS 06/30/24 escitalopram oxalate 20 mg tablet 20 mg PO DAILY 06/30/24 omeprazole 40 mg capsule,delayed release 40 mg PO DAILY 06/30/24 tirzepatide 10 mg/0.5 mL subcutaneous pen injector (Mounjaro) 10 mg subcut QWEEK 06/30/24 oxycodone 5 mg tablet 5 - 10 mg (1 - 2 x 5 mg) PO Q6H PRN pain 5 days #20 tabs 07/01/24 Hospital Course Operations cholecystecomy (Laparoscopic cholecystectomy with attempted cholangiograms) Summary of Care Provided Minutes Spent on Discharge: 30 Hospital Course: Patient is a 44 y/o F who presented with a 2 week history of worsening pain in the right upper quadrant. CT scan of the ab/pel demonstrated gallbladder wall thickening with a slightly elevated WBC. Dr. Bosch performed a Laparoscopic cholecystectomy with attempted cholangiograms on 07/01/24. Patient developed nausea and dry heaves following the procedure and was admitted as an inpatient. She was also admitted for pain control. Her hospitalization otherwise was unremarkable. Upon discharge, she notes incisional soreness. She denies nausea, vomiting. She notes slow return of her appetite. She is urinating well. Discharge instructions were relayed to the patient. Weight / BMI Weight Weight: 208 lb 6.412 oz Body Mass Index (BMI) 34.7 ABG / Lab / Microbiology Data 07/01/24 06:35 07/02/24 09:41 Laboratory: Laboratory Results - last 24 hr 07/02/24 09:41: Sodium 138, Potassium 4.7, Chloride 106, Carbon Dioxide 17.3 L, Anion Gap 15, BUN 3 L, Creatinine 0.78, Estim Creat Clear Calc 105.72, Est GFR (MDRD) Non-Af 97, BUN/Creatinine Ratio 3.5 L, Glucose 68 L, Calcium 9.3, Total Bilirubin 0.29, AST 74 H, ALT 60 H, Alkaline Phosphatase 77, Total Protein 7.1, Albumin 4.2, Globulin 2.9, Albumin/Globulin Ratio 1.4 D/C Instructions Discharge Diet: Light diet - advance as tolerated May shower in (days): 1 Additional Activity Instructions: Pain medication may cause nausea. You should typically eat light foods as you take your pain medications. Pain medication may also cause constipation. If this is a problem for you, please discuss with your doctor. Call your doctor if your incision/area has: Continuous Slow Oozing, Sudden Increased Bleeding, Increased Pain/ Swelling, Increased Redness and Foul Smelling Discharge Call your doctor if you observe: Fever of 101 or Higher Suture Line Care: Avoid Pulling/Pushing and Avoid Pinching/Bending Additional Dressing/Incision Instructions: Leave operative bandaids on for 2 days. When you remove dressing, leave Steri-Strips on until your follow-up appointment, or until the Steri-Strips fall off on their own. DC O2, CPAP, BIPAP Needs Home O2 Discharge instructions: No Please Follow Up With: Unruly Bosch MD When: Please call to schedule 2 week follow up appointment. [phone] Meaningful Use Info Meaningful Use Meaningful Use Diagnoses (Choose all that apply): None applicable Ischemic Stroke Statin Dosing Therapy Reference: STATIN DOSE THERAPY REFERENCE: * Patients > 75 years receive moderate or high dose statin therapy. * Patients 75 years or YOUNGER should receive HIGH intensity statin dose unless contraindicated. You will be required to document reason for non-treatment if statin daily dose does not meet guidelines. HIGH DOSE STATIN THERAPY DAILY Atorvastatin > than or = to 40 mg Rosuvastatin > than or = to 20 mg Amlodipine + Atorvastatin > than or = to 2.5/40 mg Ezetimibe + Simvastatin 10/80 mg Simvastatin 80mg Discharge Plan Admission Admit Date/Time: 06/30/24 21:04 Attending Provider: Unruly Bosch Primary Care Provider: PAIGE WEEKS Discharge Orders/Prescriptions Prescriptions: New oxycodone 5 mg tablet 5 - 10 mg PO Q6H PRN (Reason: pain) 5 Days Qty: 20 0RF Continued atorvastatin 20 mg tablet 20 mg PO QHS omeprazole 40 mg capsule,delayed release(DR/EC) 40 mg PO DAILY escitalopram oxalate 20 mg tablet 20 mg PO DAILY Mounjaro 10 mg/0.5 mL pen injector 10 mg subcut QWEEK Rx Instructions: saturdays Referrals / Follow Up: MICKY GRIER, PAIGE [Other] MICKY GRIER, PAIGE [Other] Disposition Disposition (needs filled in before D/C Order can be placed): Home, Self Care Charges/Coding Visit Charges Inpatient E&M: 77842 Disch Hosp (post-op)
== END 2024-07-02 13:56 | disposition home or self-care (01) | DRG 419 ==
LOC: ED 21:27 → MS2 07-01 06:17 → MS3 07-02 08:39 → MS2 07-28 09:16 → MS3 07-28 09:16
PROVIDERS: Physician Assistant; Admitting Provider Surgery; Emergency Provider Emergency Medicine; Visit Provider Surgery
PROC: (CPT 47610; principal; 2024-07-01 11:30)
DX: K81.0 Acute cholecystitis (principal); E66.9 Obesity, unspecified; F41.9 Anxiety disorder, unspecified; F17.210 Nicotine dependence, cigarettes, uncomplicated; E78.5 Hyperlipidemia, unspecified; Z90.710 Acquired absence of both cervix and uterus; Z68.34 Body mass index [BMI] 34.0-34.9, adult; K82.0 Obstruction of gallbladder
CPT/HCPCS: 47563; 00790; 36415; 74177; 74300; 76000; 80053; 81001; 83690; 84703; 85025; 88304; 93005; 96361; 96365; 96366; 96375; 96376; 97802; 99221; 99283; Q9967; A4216; G0378; J2405

== ENCOUNTER 2024-07-04 16:27 | Emergency (ER) | payer OTHER, SELFPAY ==
[2024-07-04 16:28] VITALS: BP 120/75; PULSE 137; RESP 18; TEMP 37.1; O2SAT 98; BMI 33.7
--- NOTE | 2024-07-04 16:41 | CT_ITS ---
PROCEDURE: ABDOMEN/PELVIS W IV CONT ONLY 07/04/2024 REASON FOR EXAM: POST OP ABDOMINAL PAIN AND CONSTIPATION TECHNIQUE: Abdomen and pelvis CT with intravenous contrast. Coronal and Sagittal reconstruction series were provided. PATIENT PREPARATION: Per protocol ORAL CONTRAST TYPE: None. AMOUNT: mL CONTRAST: Isovue 370 VOLUME: 100 mL Not Provided Gauge IV One or more dose reduction techniques were used (e.g., Automated exposure control, adjustment of the mA and/or kV according to patient size, use of iterative reconstruction technique. RADIATION DOSE SUMMARY: CTDlvol: 38 mGy DLP: 1235 mGycm COMPARISON: CT of the abdomen and pelvis dated 06/30/2024 FINDINGS: Lung bases: Mild dependent atelectasis Liver: Normal size. No mass. Gallbladder: Surgically absent. There is a heterogeneous focal within the gallbladder fossa tiny foci air, this may to postsurgical changes. Biloma can not completely excluded. Spleen: Normal size. Pancreas: Normal size without evidence of mass surrounding inflammation or ductal dilation. Adrenals: 9 mm indeterminate left adrenal nodule. Right adrenal gland is grossly unremarkable. Kidneys: Small low attenuating lesion of the left kidney, too small to characterize, statistically likely representing benign cysts. No follow-up is recommended. Right kidney is grossly unremarkable. No evidence of hydronephrosis bilaterally. Bladder: Decompressed urinary bladder. Reproductive Organs: Prior hysterectomy. Adnexal regions are unremarkable. Bowel: Unremarkable Appendix: Unremarkable. Lymph nodes: Unremarkable Vasculature: The abdominal aorta and IVC are normal. Peritoneum / Retroperitoneum: Multiple scattered foci of air within the peritoneum, the largest pocket is identified within the right upper quadrant, concerning for pneumoperitoneum. This may be related to recent cholecystectomy. Small pelvic free fluid. Bones: Unremarkable Mild stranding of the anterior abdominal wall subcutaneous soft tissue. CT/Abdomen/Pelvis W IV Cont ONLY IMPRESSION: Status post cholecystectomy with heterogeneous collection/phlegmon with small f oci of air, likely postsurgical in nature. Alternatively this may represent small bilateral and less likely abscess. Evidence of pneumoperitoneum, the largest pocket is identified within the right upper quadrant, this may be related to recent cholecystectomy. However, underlying area of perforation can not be completely excluded. Prior imaging may be helpful for comparison. 9 mm indeterminate left adrenal nodule, recommend MRI of the adrenal glands for further characterization. Reading Location: [facility]
--- NOTE | 2024-07-04 16:44 | EX.ED.DYSGE1 ---
HPI <MARYBETH Byrnes - Last Filed: 07/04/24 18:48> History of Present Illness Chief Complaint: Abd Pain Narrative Narrative: 44-year-old female with PMH of GERD, obesity on weight loss medication had a laparoscopic cholecystectomy on 07/01/2024. She was admitted for vomiting and pain control and discharged on 07/02/2024. She states she felt well upon discharge and was taking oxycodone but it causes her to be wired and unable to sleep so she stopped taking it frequently. Last dose was about 18 hours ago. Yesterday she developed intermittent sharp abdominal pains which has progressed to generalized abdominal pain. She has not had a bowel movement since she left the hospital. She is not passing gas. She is tolerating small amount of p.o. intake without vomiting. No fever or chills. No chest pain or shortness of breath. She also has history of hysterectomy and tubal ligation. PFSH <MARYBETH Byrnes - Last Filed: 07/04/24 18:48> PFSH Medical History Bladder laceration as postoperative complication Sleep walking Patella fracture Spinal cord injury Home Medications ?Medication ?Instructions ?Recorded ?Last Taken ?Type atorvastatin 20 mg tablet 20 mg PO QHS 06/30/24 06/30/24 History escitalopram oxalate 20 mg tablet 20 mg PO DAILY 06/30/24 06/30/24 History omeprazole 40 mg capsule,delayed 40 mg PO DAILY 06/30/24 06/30/24 History release tirzepatide 10 mg/0.5 mL 10 mg subcut QWEEK 06/30/24 06/27/24 History subcutaneous pen injector (Mounjaro) oxycodone 5 mg tablet 5 - 10 mg (1 - 2 x 5 mg) PO Q6H 07/01/24 Unknown Rx PRN pain 5 days #20 tabs Allergy/AdvReac Type Severity Reaction Status Date / Time shrimp Allergy Severe Anaphylaxis Verified 07/04/24 16:28 aspirin AdvReac Itching Verified 07/04/24 16:28 metaxalone (From Skelaxin) AdvReac Itching Verified 07/04/24 16:28 Surgical History H/O tubal ligation H/O: hysterectomy Social History Smoking Status: Current every day smoker tobacco type: cigarettes ROS <MARYBETH Byrnes - Last Filed: 07/04/24 18:48> ROS ED ROS Narrative Constitutional: Negative for fever, chills, malaise. CVS: Negative for chest pain. Respiratory: Negative for shortness of breath, cough. GI: Negative for abdominal pain, constipation. : Negative for dysuria. EXAM <MARYBETH Byrnes - Last Filed: 07/04/24 18:48> Physical Exam Narrative Exam Narrative: CONST: Patient sitting in bed looks uncomfortable EYES: Normal inspection. NECK: Normal inspection. RESP: No respiratory distress, CTAB. CVS: Regular rate and rhythm, no murmur, no gallop. ABD: Soft with generalized tenderness, nondistended, laparoscopic incisions intact without signs of infection. SKIN: Color normal, no rash, warm, dry, intact. EXTREMITIES: Normal appearance, no pedal edema. NEURO: Alert and answering questions appropriately. PSYCH: Normal affect. Const Vital Signs: 07/04/24 16:28 07/04/24 18:25 Temperature 98.7 F Temperature Source Oral Pulse Rate 137 H 92 Respiratory Rate 18 19 H Blood Pressure 120/75 95/67 Blood Pressure Mean 90 76 Pulse Ox 98 98 Oxygen Delivery Method Room Air Room Air <Dr. Laureano Wakefield MD - Last Filed: 07/04/24 17:16> Physical Exam Const Vital Signs: 07/04/24 16:28 07/04/24 18:25 Temperature 98.7 F Temperature Source Oral Pulse Rate 137 H 92 Respiratory Rate 18 19 H Blood Pressure 120/75 95/67 Blood Pressure Mean 90 76 Pulse Ox 98 98 Oxygen Delivery Method Room Air Room Air MDM <MARYBETH Byrnes - Last Filed: 07/04/24 18:48> MDM MDM Narrative Medical decision making narrative: Consults: General Surgery Differential includes but not limited to postoperative pain, infection, constipation, bowel obstruction 44-year-old female is POD #3. From laparoscopic cholecystectomy presenting with generalized abdominal pain and constipation. She appears uncomfortable but nontoxic. BP 120/75, HR 137, and otherwise normal vital signs. Abdomen soft with generalized tenderness and no distention. CBC, CMP, lipase overall unremarkable. CT shows postsurgical cholecystectomy changes with heterogenous collection/phlegmon with small foci of air. There is pneumoperitoneum in the right upper quadrant which is likely postsurgical but states cannot rule out perforation. After IV fluids, morphine, Zofran patient is feeling improved. The blood work and CT scan was reviewed with Dr. Bosch who believes these are postsurgical changes and is not concerned for acute perforation. He recommended outpatient follow-up. Since the patient has been constipated but does not have a bowel obstruction I recommended a bowel regimen. She is only tried a suppository x 1. I discussed return precautions and she was discharged in stable condition. I have personally performed a face to face assessment of the patient and have reviewed the [facility] Note. I performed a substantive portion of the visit including all aspects of the following. My zuniga findings include: History is 44-year-old female status post laparoscopic cholecystectomy on Saturday. States that she was doing well and started having increasing pain on Saturday. No vomiting. No diarrhea. Limited no bowel movement is said she has not eaten much. No fever. No dysuria. States the pains in the right upper quadrant also periumbilical. Also has had a prior hysterectomy. Exam is [well-appearing 44-year-old female. Vital signs stable afebrile. H EENT exam pupils round react light. Extra motions are intact. Neck nontender no JVD. Lungs clear to auscultation. Heart regular rhythm no murmur. Heart rate 120. Abdomen soft. No peritoneal signs. Mild diffuse tenderness. Well-healing laparoscopic surgical incisions. No discharge or redness. No obvious obstruction. Moving all 4 extremities. Nontender no edema. Neurologically she is awake and alert.] Medical Decision Making [44-year-old female status postcholecystectomy. Plan of abdominal pain. CAT scan labs are pending. CBC shows a white count 12.3. H&H 14 and 42.] Other additions or changes: [None] History & Record Review Additional record(s) reviewed:: Prior inpatient record and Prior labs Lab Data Labs: Laboratory Results - last 24 hr 07/04/24 07/04/24 07/04/24 17:00 17:00 17:30 WBC Cancelled 10.7 Corrected WBC Cancelled RBC Cancelled 4.21 Hgb Cancelled 12.4 Hct Cancelled 36.4 L MCV Cancelled 86.5 MCH Cancelled 29.5 MCHC Cancelled 34.1 D RDW Std Deviation Cancelled 45.5 H RDW Coeff of [place] Cancelled 14.3 Plt Count Cancelled 246 MPV Cancelled 9.5 Immature Gran % (Auto) Cancelled 0.400 Neut % (Auto) Cancelled 49.3 Lymph % (Auto) Cancelled 41.1 H [place] % (Auto) Cancelled 6.4 Eos % (Auto) Cancelled 2.3 Baso % (Auto) Cancelled 0.5 Absolute Neuts (auto) Cancelled 5.3 Absolute Lymphs (auto) Cancelled 4.39 Total Counted Cancelled Neutrophils % (Manual) Cancelled Band Neutrophils % Cancelled Lymphocytes % (Manual) Cancelled Monocytes % (Manual) Cancelled Eosinophils % (Manual) Cancelled Basophils % (Manual) Cancelled Metamyelocytes % Cancelled Myelocytes % Cancelled Promyelocytes % Cancelled Blast Cells % Cancelled Plasma Cell % (Manual) Cancelled Other Cells % Cancelled Nucleated RBC % Cancelled 0 Nucleated RBCs/100 WBC Cancelled Differential Comment Cancelled SCANNED Diff Path Review Cancelled Hypersegmented Neuts Cancelled Atypical Lymphocytes Cancelled Reactive Lymphocytes Cancelled Smudge Cells Cancelled Toxic Granulation Cancelled Toxic Vacuolation Cancelled Dohle Bodies Cancelled Marya Rods Cancelled Platelet Estimate Cancelled Plt Morphology Comment Cancelled RBC Morphology Cancelled Cancelled Polychromasia Cancelled Hypochromasia Cancelled Basophilic Stippling Cancelled Anisocytosis Cancelled Microcytosis Cancelled Macrocytosis Cancelled Spherocytes Cancelled Sickle Cells Cancelled Target Cells Cancelled Tear Drop Cells Cancelled Ovalocytes Cancelled Stomatocytes Cancelled [place] Bodies Cancelled Jody Cells Cancelled Bite Cells Cancelled Crenated Cell Cancelled Acanthocytes (Spur) Cancelled Rouleaux Cancelled Schistocytes Cancelled Sodium 136 Potassium 3.9 Chloride 103 Carbon Dioxide 18.5 L Anion Gap 14 BUN 4 Creatinine 0.82 Estim Creat Clear Calc 99.25 Est GFR (MDRD) Non-Af 91 BUN/Creatinine Ratio 5.4 L Glucose 105 H Calcium 9.5 Total Bilirubin 0.33 AST 32 ALT 40 H Alkaline Phosphatase 74 Total Protein 6.8 Albumin 4.0 Globulin 2.8 Albumin/Globulin Ratio 1.4 Lipase 29 Radiography Diagnostic Testing: Clinical Impression(s) from Imaging Studies Abdomen/Pelvis CT 07/04/24 16:41 IMPRESSION: Status post cholecystectomy with heterogeneous collection/phlegmon with small foci of air, likely postsurgical in nature. Alternatively this may represent small bilateral and less likely abscess. Evidence of pneumoperitoneum, the largest pocket is identified within the right upper quadrant, this may be related to recent cholecystectomy. However, underlying area of perforation can not be completely excluded. Prior imaging may be helpful for comparison. 9 mm indeterminate left adrenal nodule, recommend MRI of the adrenal glands for further characterization. Reading [facility] <Dr. Laureano Wakefield MD - Last Filed: 07/04/24 17:16> [facility] Narrative Medical decision making narrative: I have personally performed a face to face assessment of the patient and have reviewed the [facility] Note. I performed a substantive portion of the visit including all aspects of the following. My zuniga findings include: History is 44-year-old female status post laparoscopic cholecystectomy on Saturday. States that she was doing well and started having increasing pain on Saturday. No vomiting. No diarrhea. Limited no bowel movement is said she has not eaten much. No fever. No dysuria. States the pains in the right upper quadrant also periumbilical. Also has had a prior hysterectomy. Exam is [well-appearing 44-year-old female. Vital signs stable afebrile. H EENT exam pupils round react light. Extra motions are intact. Neck nontender no JVD. Lungs clear to auscultation. Heart regular rhythm no murmur. Heart rate 120. Abdomen soft. No peritoneal signs. Mild diffuse tenderness. Well-healing laparoscopic surgical incisions. No discharge or redness. No obvious obstruction. Moving all 4 extremities. Nontender no edema. Neurologically she is awake and alert.] Medical Decision Making [44-year-old female status postcholecystectomy. Plan of abdominal pain. CAT scan labs are pending. CBC shows a white count 12.3. H&H 14 and 42.] Other additions or changes: [None] Lab Data Attestation: I reviewed the patient's lab results. Lab results narrative: CBC white count 12.3. H&H 14 and 42. Labs: Laboratory Results - last 24 hr 07/04/24 07/04/24 07/04/24 17:00 17:00 17:30 WBC Cancelled 10.7 Corrected WBC Cancelled RBC Cancelled 4.21 Hgb Cancelled 12.4 Hct Cancelled 36.4 L MCV Cancelled 86.5 MCH Cancelled 29.5 MCHC Cancelled 34.1 D RDW Std Deviation Cancelled 45.5 H RDW Coeff of [place] Cancelled 14.3 Plt Count Cancelled 246 MPV Cancelled 9.5 Immature Gran % (Auto) Cancelled 0.400 Neut % (Auto) Cancelled 49.3 Lymph % (Auto) Cancelled 41.1 H [place] % (Auto) Cancelled 6.4 Eos % (Auto) Cancelled 2.3 Baso % (Auto) Cancelled 0.5 Absolute Neuts (auto) Cancelled 5.3 Absolute Lymphs (auto) Cancelled 4.39 Total Counted Cancelled Neutrophils % (Manual) Cancelled Band Neutrophils % Cancelled Lymphocytes % (Manual) Cancelled Monocytes % (Manual) Cancelled Eosinophils % (Manual) Cancelled Basophils % (Manual) Cancelled Metamyelocytes % Cancelled Myelocytes % Cancelled Promyelocytes % Cancelled Blast Cells % Cancelled Plasma Cell % (Manual) Cancelled Other Cells % Cancelled Nucleated RBC % Cancelled 0 Nucleated RBCs/100 WBC Cancelled Differential Comment Cancelled SCANNED Diff Path Review Cancelled Hypersegmented Neuts Cancelled Atypical Lymphocytes Cancelled Reactive Lymphocytes Cancelled Smudge Cells Cancelled Toxic Granulation Cancelled Toxic Vacuolation Cancelled Dohle Bodies Cancelled Marya Rods Cancelled Platelet Estimate Cancelled Plt Morphology Comment Cancelled RBC Morphology Cancelled Cancelled Polychromasia Cancelled Hypochromasia Cancelled Basophilic Stippling Cancelled Anisocytosis Cancelled Microcytosis Cancelled Macrocytosis Cancelled Spherocytes Cancelled Sickle Cells Cancelled Target Cells Cancelled Tear Drop Cells Cancelled Ovalocytes Cancelled Stomatocytes Cancelled [place] Bodies Cancelled Jody Cells Cancelled Bite Cells Cancelled Crenated Cell Cancelled Acanthocytes (Spur) Cancelled Rouleaux Cancelled Schistocytes Cancelled Sodium 136 Potassium 3.9 Chloride 103 Carbon Dioxide 18.5 L Anion Gap 14 BUN 4 Creatinine 0.82 Estim Creat Clear Calc 99.25 Est GFR (MDRD) Non-Af 91 BUN/Creatinine Ratio 5.4 L Glucose 105 H Calcium 9.5 Total Bilirubin 0.33 AST 32 ALT 40 H Alkaline Phosphatase 74 Total Protein 6.8 Albumin 4.0 Globulin 2.8 Albumin/Globulin Ratio 1.4 Lipase 29 Radiography Diagnostic Testing: Clinical Impression(s) from Imaging Studies Abdomen/Pelvis CT 07/04/24 16:41 IMPRESSION: Status post cholecystectomy with heterogeneous collection/phlegmon with small foci of air, likely postsurgical in nature. Alternatively this may represent small bilateral and less likely abscess. Evidence of pneumoperitoneum, the largest pocket is identified within the right upper quadrant, this may be related to recent cholecystectomy. However, underlying area of perforation can not be completely excluded. Prior imaging may be helpful for comparison. 9 mm indeterminate left adrenal nodule, recommend MRI of the adrenal glands for further characterization. Reading [facility] Discharge Plan Triage Chief Complaint: Abd Pain ED Midlevel Provider: Connie Smith ED Provider: Laureano Wakefield Dx/Rx/DC Orders Clinical Impression: Acute postoperative abdominal pain, Constipation Instructions: Abdominal Pain, ED Constipation (Adult) Prescriptions: No Action atorvastatin 20 mg tablet 20 mg PO QHS omeprazole 40 mg capsule,delayed release(DR/EC) 40 mg PO DAILY escitalopram oxalate 20 mg tablet 20 mg PO DAILY Mounjaro 10 mg/0.5 mL pen injector 10 mg subcut QWEEK Rx Instructions: saturdays oxycodone 5 mg tablet 5 - 10 mg PO Q6H PRN (Reason: pain) 5 Days Qty: 20 0RF Primary Care Provider: PAIGE WEEKS Referrals: PAIGE WEEKS [Other] Activity Restrictions/Additional Instructions: I went over your blood work and CT scan with your surgeon who recommended he follow-up with him in the office. I recommend increased treatment of your constipation with MiraLAX, Colace, suppositories as needed. Print Language: Slovak Disposition Disposition: Home, Self Care
[2024-07-04] MEDS: Ondansetron 4 MG/2 ML Vial IV (17:08)
[2024-07-04] MEDS: Morphine 4 MG/ML Syringe IV (17:08)
[2024-07-04] MEDS: 0.9% Normal Saline (1000mL) 1,000 ML 999 ML IV (17:08)
[2024-07-04 17:36] LABS: Absolute Lymphocyte Count 4.39 X10^3/uL (0.83-4.51); Absolute Neutrophil Count 5.3 X10^3/uL (2.0-7.7); Basophil# 0.05 X10^3/uL; Basophil% 0.5 % (0-1); Eosinophil# 0.25 X10^3/uL; Eosinophils% 2.3 % (0-5); Hematocrit 36.4 % (37-47); Hemoglobin 12.4 g/dL (12.0-15.0); Lymphocyte # 4.39 X10^3/ul (0.83-4.51); Lymphocyte % 41.1 % (19-41); Mean Corp Hgb Conc 34.1 g/dL (32-36); Mean Corpuscular Hgb 29.5 pg (27.0-32.0); Mean Corpuscular Volume 86.5 fL (81-99); Mean Platelet Vol. 9.5 fl (6.2-12.0); Monocyte# 0.68 X10^3/uL; Monocyte% 6.4 % (0-10); NRBC Flagged by Analyzer 0 % (0-5); Neutrophil # 5.28 X10^3/uL (2.7-7.7); Neutrophil % 49.3 % (47-70); POSITIVE MORPHOLOGY YES; Platelet Count 246 K/mm3 (150-450); RBC Distribution Width CV 14.3 % (11.6-14.6); RBC Distribution Width SD 45.5 fl (35.1-43.9); Red Blood Count 4.21 M/mm3 (4.2-5.4); White Blood Count 10.7 K/mm3 (4.4-11.0)
[2024-07-04 17:38] LABS: Differential Indicated SCAN CRITERIA MET
[2024-07-04 17:39] LABS: Lipase 29 U/L (13-75)
[2024-07-04 18:01] LABS: ALB/GLOB Ratio 1.4 RATIO (0.9-2.4); AST(SGOT) 32 U/L (<=31); Alanine Aminotransfer ALT/SGPT 40 U/L (<=34); Alkaline Phosphatase 74 U/L (35-104); Anion Gap 14 (5-15); BUN 4 mg/dL (4-19); BUN/Creat Ratio 5.4 RATIO (10-20); Calcium,Total 9.5 mg/dL (7.6-11.0); Carbon Dioxide 18.5 mmol/L (21.0-32.0); Chloride 103 mmol/L (98-108); Creatinine, Serum 0.82 mg/dL (0.70-1.20); EST Glomerular Filtration Rate 91 (>60); Estimated Creatinine Clearance 99.25 ml/min (50-250); Globulin 2.8 g/dL (2.2-4.2); Glucose 105 mg/dL (70-99); Potassium 3.9 mmol/L (3.3-5.1); Protein, Total 6.8 g/dL (5.9-8.4); Sodium Level 136 mmol/L (133-145); Total Bilirubin 0.33 mg/dL (0.00-1.30)
[2024-07-04 18:11] LABS: Differential Comment SCANNED
[2024-07-04 18:25] VITALS: BP 95/67; PULSE 92; RESP 19; O2SAT 98
== END 2024-07-04 18:51 | disposition home or self-care (01) ==
PROVIDERS: Physician Assistant; Emergency Provider Emergency Medicine; Visit Provider Emergency Medicine
DX: G89.18 Other acute postprocedural pain (principal); K59.00 Constipation, unspecified; Z90.710 Acquired absence of both cervix and uterus; R10.9 Unspecified abdominal pain; Z90.49 Acquired absence of other specified parts of digestive tract; Z98.51 Tubal ligation status; F17.210 Nicotine dependence, cigarettes, uncomplicated; K21.9 Gastro-esophageal reflux disease without esophagitis
CPT/HCPCS: 74177; 80053; 83690; 85025; 96361; 96374; 96375; 99283; Q9967; A4216; J2405